=== PATIENT | female | born 2000 | race Caucasian/White ===

== ENCOUNTER 2019-07-01 03:34 | Outpatient (CLI) | payer MEDICAID ==
[2019-07-01 03:54] VITALS: BP 125/85
[2019-07-01 03:54] LABS: MICROSCOPIC INDICATED
[2019-07-01] MEDS ORDERED: ONDANSETRON 2MG/ML, 2ML IVPush PRN (04:25)
[2019-07-01] MEDS ORDERED: ONDANSETRON 2MG/ML, 2ML ONE (04:27)
[2019-07-01] MEDS ORDERED: LACTATED RINGERS 1,000 ML IVBOLUS ONE (04:30)
[2019-07-01] MEDS ORDERED: D5%-LACTATED RINGERS 1,000 ML IV SCH (05:00)
[2019-07-01 05:48] LABS: BASOPHILS % (AUTO) 0 % (0-1); EOSINOPHILS # (AUTO) 0.06 x10^3/uL (0-0.8); EOSINOPHILS % (AUTO) 0 % (1-7); LYMPHOCYTES # (AUTO) 1.12 x10^3/uL (1-6.1); LYMPHOCYTES % (AUTO) 8 % (22-44); MD NO; MEAN CORPUSCULAR HEMOGLOBIN 30.5 pg (27.0-34.8); MEAN CORPUSCULAR HGB CONC 33.8 g/dL (32.4-35.8); MEAN PLATELET VOLUME 8.6 fL (7.4-10.4); MONOCYTES # (AUTO) 0.59 x10^3/uL (0-1.4); MONOCYTES % (AUTO) 4 % (2-9); NEUTROPHILS % (AUTO) 87 % (42-75); PLATELET COUNT 174 x10^3/uL (130-400); RED BLOOD COUNT 4.25 x10^6/uL (3.82-5.3)
[2019-07-01 05:50] LABS: ALANINE AMINOTRANSFERASE 22 U/L (12-78); ALBUMIN 3.2 g/dL (3.4-5.0); ANION GAP 8 mmol/L (5-15); CALCIUM 8.6 mg/dL (8.5-10.1); CHLORIDE 106 mmol/L (98-107); CREATININE 0.62 mg/dL (0.55-1.02)
[2019-07-01 05:51] LABS: ALKALINE PHOSPHATASE 110 U/L (45-117); BILIRUBIN,TOTAL 0.7 mg/dL (0.2-1.0); TOTAL PROTEIN 7.4 g/dL (6.4-8.2)
[2019-07-01 06:19] LABS: MICROSCOPIC NOT IND
[2019-07-01 08:28] LABS: CLOSTRIDIUM DIFFICILE ANTIGEN NEGATIVE; CLOSTRIDIUM DIFFICILE TOXIN NEGATIVE (Negative)
== END 2019-07-01 10:18 | disposition home or self-care (01) ==
LOC: LDOP 03:34 → UNDOADMOB 05:30 → LDIP 05:30 → UNDODISOB 09:48 → LDOP 10:18
PROVIDERS: ATTEND Obstetrics & Gynecology
DX: O26.893 Other specified pregnancy related conditions, third trimester (principal); O21.9 Vomiting of pregnancy, unspecified; R10.9 Unspecified abdominal pain; Z3A.30 30 weeks gestation of pregnancy
CPT/HCPCS: 51701; 59025; 80053; 81001; 81003; 85025; 87086; 87324; 96361; 96372; 99211; J2405; J7120; J7121; G0378; G0463

== ENCOUNTER 2019-08-08 14:16 | Outpatient (CLI) | payer MEDICAID ==
[~2019-08-08] VITALS: Ht 165.1 cm; Wt 70.5 kg
[2019-08-08 14:30] VITALS: BP 129/82
[2019-08-08 15:55] LABS: MICROSCOPIC INDICATED
[2019-08-08] MEDS ORDERED: LIDOCAINE 1%, 10ML ONE (17:45)
[2019-08-08] MEDS ORDERED: CEFTRIAXONE 250 MG IM ONE (18:00)
== END 2019-08-08 18:20 | disposition home or self-care (01) ==
LOC: LDOP 14:16
PROVIDERS: ATTEND Obstetrics & Gynecology
DX: O62.9 Abnormality of forces of labor, unspecified (principal); O26.893 Other specified pregnancy related conditions, third trimester; R10.9 Unspecified abdominal pain; M54.9 Dorsalgia, unspecified; Z3A.36 36 weeks gestation of pregnancy
CPT/HCPCS: 59025; 81001; 87086; 96372; 99211; J0696; G0463

== ENCOUNTER 2019-08-14 17:01 | Inpatient (IN) | payer MEDICAID ==
[~2019-08-14] VITALS: Ht 165.1 cm; Wt 69.0 kg
[2019-08-14] MEDS ORDERED: OXYTOCIN 30U/ 0.9% NaCL 500ML 500 ML IV ONE (18:21)
[2019-08-14] MEDS ORDERED: OXYTOCIN 30U/ 0.9% NaCL 500ML 500 ML IV PRN ×2 (18:21)
[2019-08-14] MEDS ORDERED: IBUPROFEN 600 MG TABLET PO PRN (18:30)
[2019-08-14] MEDS ORDERED: OXYcodone/APAP 10/325MG TABLET PO PRN (18:30)
[2019-08-14] MEDS ORDERED: OXYcodone/APAP 5/325MG TABLET PO PRN (18:30)
[2019-08-14] MEDS ORDERED: MISOPROSTOL 200 MCG TABLET PR PRN (18:30)
[2019-08-14] MEDS ORDERED: RHOGAM FROM BLOOD BANK 1 NOTE EA IM/IV PRN (18:30)
[2019-08-14] MEDS ORDERED: ACETAMINOPHEN 325 MG TABLET PO PRN (18:30)
[2019-08-14] MEDS ORDERED: ONDANSETRON 2MG/ML, 2ML IVPush PRN (18:30)
[2019-08-14] MEDS ORDERED: morphine SULFATE 10 MG/ML, 1ML IVPush PRN (18:30)
[2019-08-14] MEDS ORDERED: CALCIUM CARBONATE 500 MG TAB.CHEW PO PRN (18:30)
[2019-08-14 19:01] LABS: AMPHETAMINE SCREEN, URINE Negative (Negative); BARBITURATE SCREEN, URINE Negative (Negative); BENZODIAZEPINE SCREEN, URINE Negative (Negative); CANNABINOID SCREEN, URINE Positive (Negative); COCAINE SCREEN, URINE Negative (Negative); METHADONE SCREEN, URINE Negative (Negative); OPIATE SCREEN, URINE Negative (Negative)
[2019-08-14] MEDS ORDERED: MISOPROSTOL 200 MCG TABLET ONE (19:19)
[2019-08-14] MEDS ORDERED: OXYTOCIN 30U/ 0.9% NaCL 500ML 500 ML ONE (19:19)
[2019-08-14] MEDS ORDERED: LIDOCAINE 1%, 20ML ONE (19:19)
[2019-08-14 19:27] VITALS: BP 107/61
[2019-08-14 19:29] LABS: BASOPHILS # (AUTO) 0.06 x10^3/uL (0-0.3); BASOPHILS % (AUTO) 0 % (0-1); EOSINOPHILS # (AUTO) 0.35 x10^3/uL (0-0.8); EOSINOPHILS % (AUTO) 2 % (1-7); LYMPHOCYTES % (AUTO) 11 % (22-44); MD NO; MEAN CORPUSCULAR HGB CONC 34.1 g/dL (32.4-35.8); MEAN CORPUSCULAR VOLUME 87.8 fL (80-100); MEAN PLATELET VOLUME 8.7 fL (7.4-10.4); MONOCYTES # (AUTO) 0.68 x10^3/uL (0-1.4); MONOCYTES % (AUTO) 4 % (2-9); NEUTROPHILS # (AUTO) 13.52 x10^3/uL (1.8-8.0); NEUTROPHILS % (AUTO) 82 % (42-75); PLATELET COUNT 181 x10^3/uL (130-400); RED BLOOD COUNT 4.29 x10^6/uL (3.82-5.3); RED CELL DISTRIBUTION WIDTH 14.1 % (9.6-15.2)
[2019-08-14] MEDS: LACTATED RINGERS 1,000 ML IV SCH (19:43)
[2019-08-15] MEDS: LACTATED RINGERS 1,000 ML IV SCH (01:28)
[2019-08-15] MEDS ORDERED: FENTANYL/BUPIV./NS/PF 250 ML EPIDCONT SCH (01:55)
[2019-08-15] MEDS ORDERED: LACTATED RINGERS 1,000 ML IV SCH (01:55)
[2019-08-15] MEDS ORDERED: FENTANYL PF 100 MCG/2ML ONE ×2 (01:57→02:56)
[2019-08-15] MEDS ORDERED: FENTANYL PF 100 MCG/2ML IVPush ONE (02:00)
[2019-08-15] MEDS ORDERED: LACTATED RINGERS 1,000 ML IVBOLUS PRN (02:00)
[2019-08-15] MEDS ORDERED: EPHEDRINE 50 MG/ML, 1ML IVPush PRN (02:00)
[2019-08-15] MEDS ORDERED: FENTANYL PF 500 MCG, BUPIVACAINE/PF 0.5%, 30ML 62.5 ML in SODIUM CHLORIDE 0.9% 177.5 ML EPIDCONT SCH (02:30)
[2019-08-15] MEDS ORDERED: BUPIVACAINE 0.25% ONE (02:56)
[2019-08-15] MEDS ORDERED: LIDOCAINE/PF 1.5%-EPI 1:200K, 30ML ONE (03:01)
[2019-08-15] MEDS ORDERED: OXYTOCIN 30U/ 0.9% NaCL 500ML 500 ML IV SCH (07:21)
[2019-08-15] MEDS ORDERED: SIMETHICONE 80 MG CHEW TAB PO PRN (07:30)
[2019-08-15] MEDS ORDERED: METHYLERGONOVINE 0.2 MG/ML IM PRN (07:30)
[2019-08-15] MEDS ORDERED: MISOPROSTOL 200 MCG TABLET PR PRN (07:30)
[2019-08-15] MEDS ORDERED: HYDROcodone/APAP 5/325 TABLET PO PRN ×2 (07:30)
[2019-08-15] MEDS ORDERED: IBUPROFEN 600 MG TABLET PO PRN (07:30)
[2019-08-15] MEDS ORDERED: CARBOPROST TROMETHAMINE 250 MCG/ML, 1ML IM PRN (07:30)
[2019-08-15] MEDS ORDERED: CALCIUM CARBONATE 500 MG TAB.CHEW PO PRN (07:30)
[2019-08-15] MEDS ORDERED: ONDANSETRON 2MG/ML, 2ML IV PRN (07:30)
[2019-08-15] MEDS ORDERED: DOCUSATE 100 MG CAPSULE PO PRN (07:30)
[2019-08-15] MEDS ORDERED: ACETAMINOPHEN 325 MG TABLET PO PRN (07:30)
[2019-08-15] MEDS ORDERED: OXYTOCIN 30U/ 0.9% NaCL 500ML 500 ML ONE (07:38)
[2019-08-15] MEDS ORDERED: PRENATAL VIT/IRON/FA 1 EACH TABLET PO SCH (09:00)
== END 2019-08-15 10:35 | disposition home or self-care (01) | DRG 560 ==
LOC: LDOP 17:01 → LDIP 17:30
PROVIDERS: ADMIT Obstetrics & Gynecology; ATTEND Obstetrics & Gynecology
PROC: 10E0XZZ Delivery of Products of Conception, External Approach (ICD-10-PCS; principal; 2019-08-15)
PROC: 3E0R3BZ Introduction of Anesthetic Agent into Spinal Canal, Percutaneous Approach (ICD-10-PCS; 2019-08-15)
PROC: 00HU33Z Insertion of Infusion Device into Spinal Canal, Percutaneous Approach (ICD-10-PCS; 2019-08-15)
DX: O36.4XX0 Maternal care for intrauterine death, not applicable or unspecified (principal); O99.324 Drug use complicating childbirth; F12.90 Cannabis use, unspecified, uncomplicated; O43.123 Velamentous insertion of umbilical cord, third trimester; Z37.1 Single stillbirth; Z3A.36 36 weeks gestation of pregnancy
CPT/HCPCS: J3490; S0020; 36415; 76819; 80307; 85025; 86644; 86645; 86694; 86695; 86696; 86762; 86777; 86778; 86850; 86900; 87070; 87075; 87076; 87077; 87186; 87205; 88307; G0378; J3010; J2590; J7050; J7120